=== PATIENT | male | born 1965 | race Two or more races ===

== ENCOUNTER 2017-01-05 15:16 | Emergency (ER) | payer OTHER ==
[~2017-01-05] VITALS: Ht 170.2 cm; Wt 90.7 kg
[~2017-01-05 15:16] MED LIST: IBUPROFEN600 MG PO; NKM; VICODIN 5-5001 EACH PO
[2017-01-05 15:25] VITALS: BP 120/79
--- NOTE | 2017-01-05 15:39 | Emergency Room Report ---
History of Present Illness General Chief Complaint: Burn/Smoke Inhalation Source: Patient Present Illness HPI 51 YO Male presents to the ED c/o pain, swelling, and erythema of burn to the dorsum of the left hand which happened 2 weeks ago at work. pt. states he never received initial medical evaluation for his injury. pt. states he has been taking care of it himself however he is worried about infection and states he continues to have sensitivity. pt. does not know when his last tetanus vaccination was. denies fevers or chills. Denies numbness tingling or loss of sensation or gross motor movements of the extremities, incontinence of bowel or bladder. Denies CP, Palpitations, LOC, AMS , dizziness, Changes in Vision, Sensation, paresthesias, or a sudden severe headache. Allergies: Coded Allergies: No Known Allergies (Unverified , 02/02/13) Patient History Past Medical History: see triage record Past Surgical History: none Pertinent Family History: none Reviewed Nursing Documentation: PMH: Agreed, PSxH: Agreed Nursing Documentation-PMH Past Medical History: No Stated History Review of Systems All Other Systems: negative except mentioned in HPI Physical Exam Vital Signs Date Time Temp Pulse Resp B/P Pulse Ox O2 Delivery O2 Flow Rate FiO2 01/05/17 15:25 98.1 57 14 120/79 99 Room Air Sp02 EP Interpretation: reviewed, normal General Appearance: no apparent distress, alert, GCS 15, non-toxic Head: normocephalic, atraumatic Eyes: bilateral eye PERRL, bilateral eye normal inspection ENT: hearing grossly normal, normal pharynx, no angioedema, normal voice Neck: full range of motion, supple/symm/no masses Respiratory: lungs clear, normal breath sounds, speaking full sentences Cardiovascular #1: regular rate, rhythm, no edema, normal capillary refill Musculoskeletal: back normal, gait/station normal, normal range of motion, non- tender Neurologic: alert, oriented x3, responsive, motor strength/tone normal, sensory intact, speech normal Psychiatric: judgement/insight normal, memory normal, mood/affect normal Skin: normal color, no rash, warm/dry, well hydrated, mitchell - healing second - degree burn covering 1 % of the BSA, non-circumferential to the dorsum of the left hand and base of the index/middle fingers Medical Decision Making PA Attestation Dr. [place] is my supervising Physician whom patient management has been discussed with. Diagnostic Impression: Primary Impression: Burn injury ER Course Pt. presents to the ED c/o pain, swelling, and erythema of burn to the dorsum of the left hand which happened 2 weeks ago at work. pt. states he never received initial medical evaluation for his injury. pt. states he has been taking care of it himself however he is worried about infection and states he continues to have sensitivity. pt. does not know when his last tetanus vaccination was. denies fevers or chills. Ddx considered but are not limited to cellulitis, burn, Septic Joint, fracture, d/L, gout, fungal infection, Vital signs: are WNL, pt. is afebrile H&PE are most consistent with : healing second -degree burn covering 1 % of the BSA, non-circumferential to the dorsum of the left hand and base of the index/middle fingers. ORDERS: none required at this time, the diagnosis is clinical ED INTERVENTIONS: -Silvadene cream was applied and the remaining was given to pt. to continue its use twice daily . - Tetanus vaccination was administered. DISCHARGE: At this time pt. is stable for d/c to home. Will provide printed patient care instructions, and any necessary prescriptions. Care plan and follow up instructions have been discussed with the patient prior to discharge. Last Vital Signs Date Time Temp Pulse Resp B/P Pulse Ox O2 Delivery O2 Flow Rate FiO2 01/05/17 15:25 98.1 57 14 120/79 99 Room Air Disposition: HOME, SELF-CARE Condition: Stable Patient Instructions: Burn Care, Second-Degree Burn Additional Instructions: Apply Burn cream twice a day keep burn clean and dry. Follow up with a PRIMARY CARE PROVIDER Return sooner to ED if new symptoms occur, or current symptoms become worse. - Please note that this Emergency Department Report was dictated using [employer] mgr technology software, occasionally this can lead to erroneous entry secondary to interpretation by the dictation equipment. Ruth Theodore Jan 05, 2017 15:39
[2017-01-05] MEDS ORDERED: Tetanus/Diptheria/Pertussis Vaccine 0.5ml Syr IM ONE (15:45)
[2017-01-05] MEDS ORDERED: Silver Sulfadiazine Cream 25gm TOPIC ONE (15:45)
[2017-01-05 15:52] VITALS: BP 120/79
== END 2017-01-05 16:05 | disposition home or self-care (01) ==
LOC: EMR 15:40
DX: T23.202A Burn of second degree of left hand, unspecified site, initial encounter (principal); T31.0 Burns involving less than 10% of body surface; Z23 Encounter for immunization; X10.2XXA Contact with fats and cooking oils, initial encounter; Y93.G3 Activity, cooking and baking; Y92.511 Restaurant or cafe as the place of occurrence of the external cause; Y99.0 Civilian activity done for income or pay
CPT/HCPCS: 90471; 90715; 96372